=== PATIENT | female | born 1930 | race Caucasian/White ===

== ENCOUNTER → 2018-02-18 | Outpatient (CLI) | payer OTHER ==
[~2018-02-18] MED LIST: ASPIRIN EC325 M1 PO; ATORVASTATIN CA20 MG PO; CALCIUM W/VIT1 EACH PO; FOSAMAX 10 MG10 MG; FOSAMAX 70 MG T70 MG PO; GEMFIBROZIL 60600 MG; MACROBID 100 M100 M1; OMEPRAZOLE; PREMARIN0.625 MG PO; VITAMIN D 5050000 I1; VITAMIN D400 UNI1 PO
== END ==
LOC: M.ULTRA 14:46
DX: M71.22 Synovial cyst of popliteal space [Baker], left knee (principal); M25.562 Pain in left knee

== ENCOUNTER 2019-01-03 16:52 | Emergency (ER) | payer OTHER ==
[~2019-01-03] VITALS: Ht 152.4 cm; Wt 60.8 kg
[2019-01-03] MEDS ORDERED: UNICOMPLEX M TA1 TA1 PO (17:01)
[2019-01-03] MEDS ORDERED: OMEGA 3 1,0001 EACH PO (17:01)
[2019-01-03 18:29] VITALS: BP 188/77
--- NOTE | 2019-01-04 12:16 | EKG ---
[place] [address] ELECTROCARDIOGRAM REPORT Name: SABIHA SU Room: [facility]#: [id number] Admission: 01/03/19 Attend Phys: Discharge: 01/03/19 Date of : [birth year] Report #: [id number] THIS REPORT FOR: //name// [facility] ED Test Date: 2019-01-03 Test Time: 17:12:14 Pat Name: SABIHA SU Department: Room: Gender: F Field Service Rep: Chris CRUZ : 1930 Requested By: Maia Mercedes Order Number: [id number] MD: Dane Velarde Measurements Intervals [place] Rate: 85 P: 4 [place]: 185 QRS: -36 QRSD: 83 T: 76 QT: 372 QTc: 443 Interpretive Statements Sinus rhythm Multiple ventricular premature complexes Probable left atrial enlargement Inferior infarct, old Probable anteroseptal infarct, old Compared to ECG 10/12/2014 21:25:28 No significant changes Electronically Signed On 01-04-2019 12:16:37 CDT by Dane Velarde [email or web address] <ELECTRONICALLY SIGNED> By: Dane Velarde MD, FAC 01/04/19 1216 171 171 Dane Velarde MD, [facility] /EPI
== END 2019-01-03 18:30 | disposition home or self-care (01) ==
LOC: M.ERS 16:52
DX: S00.01XA Abrasion of scalp, initial encounter (principal); M54.2 Cervicalgia; E78.00 Pure hypercholesterolemia, unspecified; M81.0 Age-related osteoporosis without current pathological fracture; Z88.2 Allergy status to sulfonamides; W07.XXXA Fall from chair, initial encounter; Y93.89 Activity, other specified; Y92.89 Other specified places as the place of occurrence of the external cause; Y99.0 Civilian activity done for income or pay

== ENCOUNTER 2019-01-14 21:57 | Emergency (ER) | payer OTHER ==
[~2019-01-14] VITALS: Ht 152.4 cm; Wt 60.8 kg
[~2019-01-14 21:57] MED LIST changes: +OMEGA 3 1,0001 EACH PO; +UNICOMPLEX M TA1 TA1 PO
[2019-01-14 23:00] VITALS: BP 154/64
== END 2019-01-14 23:03 | disposition home or self-care (01) ==
LOC: M.ERS 21:57
DX: F07.81 Postconcussional syndrome (principal); E78.00 Pure hypercholesterolemia, unspecified; M81.0 Age-related osteoporosis without current pathological fracture; E11.9 Type 2 diabetes mellitus without complications; Z88.2 Allergy status to sulfonamides